=== PATIENT | female | born 1960 ===

== ENCOUNTER 2024-03-24 08:00 | Outpatient (CLI) | payer BC | END 2024-03-24 08:01 | disposition home or self-care (01) | LOC: PET 08:00 | PROVIDERS: ATTEND Internal Medicine Hematology & Oncology | DX: C90.30 Solitary plasmacytoma not having achieved remission (principal); M15.4 Erosive (osteo)arthritis; S32.019A Unspecified fracture of first lumbar vertebra, initial encounter for closed fracture | CPT/HCPCS: 78815; A9552 ==